=== PATIENT | male | born 1950 | race Asian ===

== ENCOUNTER 2018-12-13 12:20 | Emergency (ER) | payer OTHER ==
[~2018-12-13] VITALS: Ht 162.6 cm; Wt 60.8 kg
[~2018-12-13 12:20] MED LIST: ALLO300T28; CYCL5TAB2 PO; GABA-560 PO; [UNRECOGNIZED DRUG - CODE] PO
[2018-12-13 12:32] VITALS: BP 140/96
--- NOTE | 2018-12-13 12:39 | NUR ---
WALK WITH CR[facility] . [facility]
--- NOTE | 2018-12-13 13:15 | NUR ---
TO BED #06 AMBULATORY WITH CRUTCHES
--- NOTE | 2018-12-13 14:30 | NUR ---
X RAY RT OF ANKLE DONE AT BEDSIDE.
--- NOTE | 2018-12-13 14:55 | NUR ---
US AT BEDSIDE AT THIS TIME
--- NOTE | 2018-12-13 15:12 | NUR ---
PT IN BED EATING LUNCH, FAMILY AT BEDSIDE. VSS. PT STATES PAIN IN ANKLE IS STILL AT 5 OR 6 OUT OF 10.
[2018-12-13 16:46] VITALS: BP 137/88
== END 2018-12-13 16:46 | disposition home or self-care (01) ==
LOC: MED 12:20
DX: L03.115 Cellulitis of right lower limb (principal); I10 Essential (primary) hypertension; Z98.890 Other specified postprocedural states; Z79.891 Long term (current) use of opiate analgesic; Z79.899 Other long term (current) drug therapy
CPT/HCPCS: 73610; 93971; 99284; Q0092

== ENCOUNTER 2019-01-23 20:29 | Emergency (ER) | payer OTHER ==
[~2019-01-23] VITALS: Ht 162.6 cm; Wt 60.8 kg
[2019-01-23 20:34] VITALS: BP 157/93
--- NOTE | 2019-01-23 20:37 | NUR ---
PT AMBULATED W/ SON TO LOBBY.
--- NOTE | 2019-01-23 21:00 | NUR ---
PATIENT AMBULATED TO ER BED 8
--- NOTE | 2019-01-23 21:00 | NUR ---
ASSUMED CARE OF PT AT THIS TIME. C/O SUDDEN ONSET LEFT ANKLE PAIN AND SWELLING X2 DAYS. PT DENIES ANY TRAUMA AT THIS TIME. AAOX4 WITH EVEN AND STEADY GAIT; PATIENT STATES PAIN OF 7/10; VSS; PATIENT POSITIONED FOR COMFORT; HOB ELEVATED; BEDRAILS UP X2; BED DOWN. ER MD MADE AWARE OF PT STATUS. WILL CONTINUE TO MONITOR.
[2019-01-23] MEDS ORDERED: HYDROcodone/APAP 5/325 MG 1 TAB TAB PO ONE (21:50)
[2019-01-23] MEDS ORDERED: KETOROLAC 30 MG/ML VIAL IM ONE (21:50)
[2019-01-23 22:30] VITALS: BP 157/93
--- NOTE | 2019-01-23 22:30 | NUR ---
Patient discharged with v/s stable. Written and verbal after care instructions given and explained. Patient alert, oriented and verbalized understanding of instructions. Ambulatory with steady gait. All questions addressed prior to discharge. ID band removed. Patient advised to follow up with PMD. Rx of NAPROSYN AND NORCO given. Patient educated on indication of medication including possible reaction and side effects. Opportunity to ask questions provided and answered.
--- NOTE | 2019-01-23 22:35 | NUR ---
air cast was placed on pts left ankle and shoulder sling was placed on pts right shoulder
== END 2019-01-23 22:30 | disposition home or self-care (01) ==
LOC: MED 20:29
DX: M10.9 Gout, unspecified (principal); M25.511 Pain in right shoulder; I10 Essential (primary) hypertension; Z98.890 Other specified postprocedural states; Z79.891 Long term (current) use of opiate analgesic; Z79.899 Other long term (current) drug therapy; X58.XXXA Exposure to other specified factors, initial encounter; Y93.89 Activity, other specified; Y92.89 Other specified places as the place of occurrence of the external cause; Y99.8 Other external cause status
CPT/HCPCS: 29515; 73610; 96372; 99283; J1885

== ENCOUNTER 2019-09-06 08:35 | Emergency (ER) | payer OTHER ==
[~2019-09-06] VITALS: Ht 162.6 cm; Wt 60.5 kg
[2019-09-06 08:44] VITALS: BP 136/99
--- NOTE | 2019-09-06 08:52 | NUR ---
68 Y/O M C/C LEFT LOWER BACK PAIN X 1 WEEK. PER FAMILY PAIN HAS BEEN PROGRESSIVELY WORSE. PT DENIES TRAUMA, KIDNEY STONES, OR BURNING WHEN URINATING. PAIN /. PT NKA. HX GOUT,HTN,HERNIA. RX HYDROCHLOTIAZIDE,ATORVASTATIN. PT WITH NAUSEA. NO V/D. SIDE RAIL X1. FAMILY AT BEDSIDE.
[2019-09-06] MEDS ORDERED: NACL 0.9% 1,000 ML IV SCH (08:59)
[2019-09-06] MEDS ORDERED: KETOROLAC 30 MG/ML VIAL IVP ONE (09:00)
[2019-09-06] MEDS ORDERED: BENA20TA PO (09:04)
[2019-09-06] MEDS ORDERED: ATOR40TA PO (09:04)
[2019-09-06] MEDS ORDERED: ERGO500028 PO (09:04)
[2019-09-06] MEDS ORDERED: TRAM50TA1 PO (09:04)
[2019-09-06] MEDS ORDERED: ORE25 PO (09:04)
[2019-09-06] MEDS ORDERED: FEBU40TA PO (09:04)
[2019-09-06 09:18] LABS: APPEARANCE,URINE CLEAR (CLEAR); BILIRUBIN,URINE NEGATIVE (NEGATIVE); BLOOD, URINE TRACE-I (NEGATIVE); COLOR,URINE YELLOW (YELLOW); LEUKOCYTE ESTERASE ,URINE NEGATIVE (NEGATIVE); NITRITE, URINE NEGATIVE (NEGATIVE); UGLUCOSE NEGATIVE (NEGATIVE)
--- NOTE | 2019-09-06 09:23 | NUR ---
[facility]
[2019-09-06 09:24] LABS: BASOPHILS % (AUTO) 0.5 % (0.0-2.0); EOSINOPHILS # (AUTO) 0.1 K/uL (0-0.4); EOSINOPHILS % (AUTO) 0.6 % (0.0-4.0); HEMATOCRIT 45.8 % (36-52); HEMOGLOBIN 15.2 g/dL (12.0-18.0); LYMPHOCYTES # (AUTO) 1.1 K/uL (2.0-11.5); LYMPHOCYTES % (AUTO) 12.4 % (20.5-51.1); MEAN CORPUSCULAR HEMOGLOBIN 32 pg (27-31); MEAN CORPUSCULAR HGB CONC 33 g/dL (33-37); MEAN CORPUSCULAR VOLUME 97.1 fL (80-94); MONOCYTES # (AUTO) 0.6 K/uL (0.8-1.0); NEUTROPHILS # (AUTO) 7.4 K/uL (1.8-7.7); NEUTROPHILS % (AUTO) 80.5 % (42.2-75.2); PLATELET COUNT (AUTO) 180 K/uL (140-450); RED BLOOD CELL COUNT(AUTO) 4.71 MIL/uL (4.20-6.10); RED CELL DISTRIBUTION WIDTH 14.1 % (11.6-13.7); WHITE BLOOD COUNT (AUTO) 9.1 K/uL (4.8-10.8)
--- NOTE | 2019-09-06 09:35 | NUR ---
Patient returned from CT scan. RN re-evaluating the patient at bedside.
[2019-09-06 09:50] LABS: RBC,URINE 0-5 /HPF (0-5); WBC,URINE 0 /HPF (0-5)
[2019-09-06 09:52] LABS: ALBUMIN 3.7 g/dL (3.4-5.0); ANION GAP 11.3 (8-16); CARBON DIOXIDE 31.5 mmol/L (21-32); CREATININE 1.1 mg/dL (0.6-1.3); POTASSIUM 3.8 mmol/L (3.5-5.1); TOTAL BILIRUBIN 0.8 mg/dL (0.0-1.0)
--- NOTE | 2019-09-06 10:07 | NUR ---
Ultrasound at bedside
[2019-09-06] MEDS ORDERED: LEVOFLOXACIN 500 MG/D5W PREMIX 100 ML IV ONE (10:40)
[2019-09-06 12:55] VITALS: BP 128/72
--- NOTE | 2019-09-06 12:57 | NUR ---
Patient discharged with v/s stable. Written and verbal after care instructions given and explained. Patient alert, oriented and verbalized understanding of instructions. Ambulatory with steady gait. All questions addressed prior to discharge. ID band removed. Patient advised to follow up with PMD. Rx of naprosyn,macrobid given. Patient educated on indication of medication including possible reaction and side effects. Opportunity to ask questions provided and answered.
== END 2019-09-06 12:40 | disposition home or self-care (01) ==
LOC: MED 08:35
DX: N39.0 Urinary tract infection, site not specified (principal); I11.0 Hypertensive heart disease with heart failure; Z79.899 Other long term (current) drug therapy; Z98.890 Other specified postprocedural states
CPT/HCPCS: 36415; 74176; 76700; 80053; 81001; 81003; 85025; 96365; 96366; 96375; 99284; J1885; J1956; J7030; Q0092